=== PATIENT | male | born 2000 | race Hispanic/Latino ===

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

== ENCOUNTER 2024-11-06 08:36 | Day surgery (SDC) | payer OTHER ==
[~2024-11-06] VITALS: Ht 177.8 cm; Wt 113.4 kg
[2024-11-06] VITALS (10 sets, daily range): BP systolic 113–129; BP diastolic 60–81; PULSE 20–79; RESP 14–18; TEMP 97–98.2
[2024-11-06] MEDS: 0.9%NACL 1000ML 1,000 ML IV ONE (09:25)
[2024-11-06] MEDS ORDERED: proPOFol 10 MG/ML 20ML VIAL IV ONE ×2 (09:50)
--- NOTE | 2024-11-06 11:11 | NUR ---
Full and complete discharge instructions given to Patient and Family both verbally and in writing. Explained GI procedure precautions and follow up. All questions answered. PIV removed with catheter tip intact. Home with Family W/C to POV.
== END 2024-11-06 11:13 | disposition home or self-care (01) ==
LOC: ENDO 08:36 → DAH 08:36 → ENDO 11:13
PROVIDERS: ATTEND Internal Medicine
DX: K92.1 Melena (principal); R12 Heartburn; K21.00 Gastro-esophageal reflux disease with esophagitis, without bleeding; K29.70 Gastritis, unspecified, without bleeding; K64.0 First degree hemorrhoids; F10.90 Alcohol use, unspecified, uncomplicated; E66.9 Obesity, unspecified; F45.8 Other somatoform disorders; Z80.0 Family history of malignant neoplasm of digestive organs; Z68.37 Body mass index [BMI] 37.0-37.9, adult
CPT/HCPCS: 43239; 45378; J7030 ×2; J2704 ×2; A4215; A4223; A7002; A4222; A4221; A4663; A4606; J3490